=== PATIENT | male | born 1955 | race Caucasian/White ===

== ENCOUNTER 2016-05-18 06:21 | Day surgery (SDC) | payer OTHER ==
[2016-05-18] MEDS ORDERED: LACTATED RINGERS 1,000 ML IV ONE (06:55)
[2016-05-18] MEDS ORDERED: MIDAZOLAM 2 MG/2 ML VIAL IVP ONE (08:45)
[2016-05-18] MEDS ORDERED: fentaNYL 250 MCG/5 ML VIAL IVP ONE (08:45)
== END 2016-05-18 06:22 | disposition home or self-care (01) ==
PROC: 0DJD8ZZ Inspection of Lower Intestinal Tract, Via Natural or Artificial Opening Endoscopic (ICD-10-PCS; principal; 2016-05-18 07:30)
DX: Z12.11 Encounter for screening for malignant neoplasm of colon (principal); K64.8 Other hemorrhoids; K57.30 Diverticulosis of large intestine without perforation or abscess without bleeding; J45.909 Unspecified asthma, uncomplicated
CPT/HCPCS: 45378; J3010; J7120

== ENCOUNTER 2017-02-20 07:45 | Outpatient (CLI) | payer OTHER ==
--- NOTE | 2017-02-20 21:16 | MRI Report ---
EXAM: MRI LUMBAR SPINE WITHOUT CONTRAST EXAM DATE: 02/20/2017 08:38 AM. CLINICAL HISTORY: LOW BACK PAIN WITH SCIATICA. Posterior left leg/buttock pain for 2 weeks. COMPARISON: None. TECHNIQUE: Multiplanar, multisequence T1-weighted and fluid-sensitive sequences of the lumbar spine f rom T12 to S1 without contrast. Other: None. FINDINGS: Spinal Cord: The conus terminates at T12-L1. The conus medullaris and cauda equina are unremarkable. Alignment: Grade 1 retrolisthesis L1 in the lobe measuring 3 mm. Grade 1 retrolisthesis L2 on L3 maude uring 4 mm. Grade 1 retrolisthesis L3 on L4 measuring 2 mm. Bone Marrow: Five hzg-lrl-ofixuda lumbar vertebral bodies are assumed. No gross fractures or bone les ions. Modic type I degenerative endplate changes at L2-L3 and L5-S1 levels with endplate edema. Disk Levels/Facets: T12-L1: No significant central canal neuroforaminal narrowing. L1-L2: Moderate disk height loss and desiccation. Moderate diffuse disk bulge. Mild central canal ramila rowing. No neuroforaminal narrowing. L2-L3: Extensive disk height loss and desiccation. Moderate diffuse disk bulge. Mild bilateral facet arthropathy. Mild central canal narrowing. Mild bilateral neuroforaminal narrowing. L3-L4: Mild disk height loss and desiccation. Mild diffuse disk bulge. Mild bilateral facet arthropat hy. Mild anterior dural compression. No significant central canal narrowing. Umkw-oz-cdfrwhgl left an d mild right neuroforaminal. L4-L5: Mild disk height loss and desiccation. Mild diffuse disk bulge. Moderate bilateral facet arthr opathy ligament flavum thickening. No significant central canal narrowing. Moderate bilateral neurofo raminal narrowing. L5-S1: Moderate disk height loss and desiccation. Mild diffuse disk bulge. Moderate to severe bilater al facet arthropathy. There is a sequestered disk fragment within the left lateral recess measuring a pproximately 6 x 9 x 12 mm (AP by transverse by craniocaudal) (series 601 image 4, series 301 image 6 ). No significant central canal narrowing. Mild left and prqh-gn-genondex right neuroforaminal narrow ing. The sequestered disk fragment results likely in severe left lateral recess narrowing with mass e ffect on traversing left S1 nerve. Musculature: Normal. No edema or fatty atrophy. Other: The partially visualized retroperitoneum is unremarkable. IMPRESSION: 1. Regarding the patient's symptoms, the most significant level is likely the L5-S1 level which demon strates moderate diffuse disk bulge and moderate to severe bilateral facet arthropathy, and likely mo st importantly, a sequestered disk fragment within the left lateral recess measuring approximately 6 x 9 x 12 mm (AP by transverse by craniocaudal) (series 601 image 4, series 301 image 6). This sequest ered disk fragment results likely in severe left lateral recess narrowing with mass effect on valerie ing left S1 nerve. In addition there is mild left and vqlm-kz-dkztmalq right neuroforaminal narrowing at this level, however no significant central canal narrowing. 2. Modic type I degenerative endplate changes at L2-L3 and L5-S1 levels with endplate edema. Modic ty pe I changes may represent a source of pain. 3. L1-L2 level demonstrates mild central canal narrowing. No neuroforaminal narrowing. 4. L2-L3 level demonstrates mild central canal narrowing. Mild bilateral neuroforaminal narrowing. 5. L3-L4 level demonstrates no significant central canal narrowing. Lsai-vx-wjsarmoh left and mild ri ght neuroforaminal. 6. L4-L5 level demonstrates significant central canal narrowing. Moderate bilateral neuroforaminal na rrowing. Comment: The following findings are so common in adults without low back pain that while we report th eir presence, they must be interpreted with caution and in the context of the clinical situation. (Re sheree Perez et al, Spine 2001) Prevalence of findings in patients without low back pain: Disk degeneration (any evidence): 92% Disk desiccation/T2 signal loss: 83% Disk height loss: 56% Disk bulge: 64% Disk protrusion: 32% Annular tear/high intensity zone: 38% RADIA Referring Provider Line: [phone] SITE ID: [id number]
== END 2017-02-20 07:46 | disposition home or self-care (01) ==
LOC: DI 07:45
PROVIDERS: ATTEND Family Medicine
DX: M51.36 Other intervertebral disc degeneration, lumbar region (principal); M47.896 Other spondylosis, lumbar region; M43.16 Spondylolisthesis, lumbar region; M51.37 Other intervertebral disc degeneration, lumbosacral region; M47.897 Other spondylosis, lumbosacral region
CPT/HCPCS: 72148

== ENCOUNTER 2020-01-23 10:57 | Outpatient (CLI) | payer MEDICARE, OTHER ==
--- NOTE | 2020-01-23 12:58 | SLEEP CARE CONSULTATION ---
Information from patient questionnaire entered by Mckenna Mccoy. I have reviewed and concur with the information entered by Mckenna Mccoy. This document represents the service I personally performed and the decisions made by me, Onel Cheatham MD, [facility]. History of Present Illness Service Date and Time: 01/23/2020 1057 Reason for Visit: New patient, Previously diagnosed sleep apnea, sleep apnea on CPAP therapy Chief Complaint: reports: Other (needs supplies/establish care) Date of Onset: 2009 Usual bedtime: 1727-6609 Snores at night: Yes Observed to quit breathing while asleep: Yes Sleeps alone due to snoring: No Number of times waking at night: 1 Toss, Turn, or Twitch while sleeping: Yes Recalls having dreams: Yes Usually gets out of bed at: 3593-0403 Feels refreshed in the morning: Yes Morning headache: No Sleepy or fatigued during the day: No Ever fallen asleep while driving: Yes Takes day naps: No Dreams during day naps: No Prior sleep studies: Yes Year and Where: 2012 Type of Sleep Study: Polysomnography Additional HPI information: I had the pleasure of seeing Mr. Vera today regarding obstructive sleep apnea- hypopnea. As you know, he is a 65 year old gentleman who was diagnosed with the sleep-disordered breathing in [place] in 2012. The AHI was 17.8 and roberto oxygen saturation, 89%. He was prescribed a BiPAP device set at 9/4 with pressure min and max of 2 and 4 cmH2O. According to him, he uses every night and all night. The compliance data show usage in only the past 2 weeks. He said that was when he put in a memory card. The residual AHI is 5.7 and average air leak is 0 L/minute. He wears a ResMed P-10 nasal pillows. He gets his supplies from [employer]. He finds the treatment very beneficial. He has just gotten on Medicare. Subjective Initial [place] Sleepiness Scale score: 12 (in 2019) Past Medical History Past Medical History: reports: GERD Social History The patient's occupation is retired. Patient is and lives in [place]. Have you smoked in the past 12 months: No Alcohol use: Yes Alcohol amount and frequency: 2-3/day Caffeine use: Yes Caffeine amount and frequency: 1-2/day Family History Family history of sleep disordered breathing: No Allergies and Home Medications Drug allergies reviewed: Yes Home medication list reviewed: Yes Review of Systems Weight gain over past 5 years: 7 Cardiovascular: denies: high blood pressure, palpitations, chest pain, irregular heart rate or pulse, leg or foot swelling, have to sleep sitting up, other Respiratory: denies: shortness of breath, wheeze, sputum production, chronic cough, other Gastrointestinal: denies: heartburn, difficulty swallowing, nausea, vomitting, diarrhea, abdominal pain, other Urinary: denies: incontinence, frequency, urgency, impotence, other Neurological: denies: headaches, seizure, head trauma, disorientation, speech dysfunction, gait or balance problems, fainting or unconsciousness, other Psychiatric: denies: Attention Deficit Hyperactivity, anxiety, depression, mood disorder, claustrophobia, other Ear/Nose/Throat: reports: sinus problems, wisdom teeth removed Endocrine: denies: thyroid disease, history of goiter, sluggishness, too hot or cold, excessive thirst, increased appetite, increased urination, unexplained weakness, other Musculoskeletal: reports: back pain, muscle pain or cramping Immunologic: reports: sneezing, itching Physical Exam Vital signs obtained and entered by: To minimize the risk of COVID-19 exposure, detailed exam was not performed. Height: 5 ft 10 in Weight: 190 lb Body Mass Index: 27.2 BMI Classification: Overweight Impression and Plan IMPRESSION: 1. Obstructive Sleep Apnea-Hypopnea Syndrome, moderate, as previously diagnosed. The patient has had good treatment compliance. The current pressure setting appears effective and comfortable. The patient experiences improvement on the treatment. According to him he has good compliance. Because the BiPAP is now older than the useful life of 5 years, I will order the patient a new one and set it a little higher because his residual AHI is 5.7.. Plan: 1. Prescription made for an autoBiPAP, heated humidifier, and related supplies. 2. Try the new ResMed N30i mask and P30i nasal pillows. 3. Return for follow up after one month on the new machine. Visit Type: In Office Time Spent with Patient (minutes): 15 Provider Statement: I spent 100% of the Face to Face Visit with the patient with greater than 50% spent counseling the patient and coordination of care.
== END 2020-01-23 10:58 | disposition home or self-care (01) ==
LOC: SC 10:57
PROVIDERS: ATTEND Internal Medicine Pulmonary Disease
DX: G47.33 Obstructive sleep apnea (adult) (pediatric) (principal); E66.3 Overweight; Z68.27 Body mass index [BMI] 27.0-27.9, adult
CPT/HCPCS: 99203; G0463; 99212

== ENCOUNTER 2023-06-09 13:34 | Outpatient (CLI) | payer MEDICARE, OTHER ==
--- NOTE | 2023-06-09 14:37 | Sleep Patient Instructions ---
Sleep Center Visit Summary - Patient Visit Information Reason for Visit: Initial Consultation - Patient Instructions Additional Instructions: You will continue with BiPAP therapy with pressure set at 9/4 cmH2O. A supply prescription will be updated with your DME. I have added an order to update your PAP machine. Please call the office to schedule a compliance follow up once you get your new device. I have also added a mask refitting for other nasal pillows mask. We encourage you to continue to try to lose weight. Please follow up with the sleep care office one month after obtaining new device. - Clinic Information Contact: [facility] [address] [place] [address] [email or web address] T: [phone]
--- NOTE | 2023-06-09 14:43 | SLEEP CARE CONSULTATION ---
Information from patient questionnaire entered by Kelly Sotelo. I have reviewed and concur with the information entered by Kelly Sotelo. This document represents the service I personally performed and the decisions made by me, Christie Davalos ARNP. History of Present Illness Service Date and Time: 06/09/2023 1334 Reason for Visit: New patient, Previously diagnosed sleep apnea, sleep apnea on CPAP therapy, Re-establish care Chief Complaint: reports: Other (UPDATE SUPPLIES) Usual bedtime: [id number] Time it takes to fall asleep: DEPENDS Snores at night: Yes Observed to quit breathing while asleep: Yes Sleeps alone due to snoring: Yes Number of times waking at night: 2 Reasons for waking at night: reports: Other (UNKNOWN, CRAMPS) Toss, Turn, or Twitch while sleeping: Yes Recalls having dreams: Yes Usually gets out of bed at: 10 Feels refreshed in the morning: No Morning headache: No Sleepy or fatigued during the day: Yes Ever fallen asleep while driving: Yes Takes day naps: No Prior sleep studies: Yes Year and Where: 2012 Type of Sleep Study: Polysomnography Additional HPI information: JUANCHO HARRISON was previously diagnosed to have moderate, AHI 17.8, obstructive sleep apnea-hypopnea syndrome in sleep study dated 09/24/2012 and comes in today to establish care for BIPAP therapy. - Parasomnia Symptoms Ever been unable to move upon waking from sleep: No Walks in sleep: No Talks in sleep: No Ever acted out dreams in sleep: No Ever felt weak in the knees when startled or emotional: No Bothered by creepy, crawly, restless sensations in legs: Yes Problems with memory or concentration: No CPAP Compliance Data - Data Reviewed with Patient Average duration of nightly device use: 5 hours 49 mins Compliance rate %: 73.3 (03/11/2023-06/08/2023; 84/90 days used) Current pressure setting (cmH2O): 9/4 with 2-5 pressure support Average residual AHI: 4.9 Central apnea: 0.7 Obstructive apnea: 1.1 Hypopnea: 3.1 Average large leak: 0 secs Compliance data discussion: He has an old machine, Rory Respironic BiPAP System One. He gets his supplies from somewhere in [place] but has not gotten any since he changed to [facility]. He is using a nasal pillows mask, ResMed. Subjective Patient concerns: reports: mask discomfort (just from moving in bed), mask leak noise. denies: aerophagia, air blowing in eyes, condensation in mask/hose, nasal congestion, dry mouth, nose, throat, epistaxis Observed to snore while using device: No Current pressure setting perceived as: comfortable On therapy, patient: reports: sleeping better, awakening more refreshed, more rested overall. denies: drowsiness while driving Initial [place] Sleepiness Scale score: 12 (in 2019) Current [place] Sleepiness Scale score: 14 (06/09/23) Past Medical History Past Medical History: reports: Asthma Social History The patient's occupation is a RE. Patient is and lives in [place]. Have you smoked in the past 12 months: No Alcohol use: Yes Alcohol amount and frequency: 2-3 DAILY Caffeine use: Yes Caffeine amount and frequency: 1-2 DAILY Family History Family history of sleep disordered breathing: Yes Family Hx Sleep Apnea: Father: Snoring Allergies and Home Medications Known drug allergies: No Drug allergies reviewed: Yes Home medication list reviewed: Yes (as listed) Allergy and home medication list: Allergies cat dander Allergy (Verified 06/07/23 09:27) Respiratory tree and shrub pollen Allergy (Verified 06/07/23 09:27) Respiratory Home Medications Medication Instructions Recorded Confirmed Last Taken Type Fluticasone/Salmeterol [Advair 1 each IH DAILY 05/15/16 06/09/23 05/17/16 History 100-50 Diskus] Cetirizine [ZyrTEC] 10 mg PO DAILY 05/18/16 06/09/23 05/17/16 History Fluticasone Propionate [Flonase 1 spray NS DAILY 05/18/16 06/09/23 05/17/16 History Allergy Relief] Review of Systems Weight gain over past 5 years: 6-8 Cardiovascular: denies: high blood pressure Gastrointestinal: reports: heartburn Neurological: denies: headaches Psychiatric: denies: anxiety, depression Ear/Nose/Throat: reports: wisdom teeth removed (one left). denies: tonsillectomy Immunologic: reports: sneezing, itching, allergies to food or environment Physical Exam Vital signs obtained and entered by: KELLY Green MA Blood Pressure: 189/88 (LEFT ARM) Cuff size: regular Heart Rate: 56 O2 Saturation: 97 Height: 5 ft 10 in Weight: 200 lb 12.8 oz Body Mass Index: 28.8 BMI Classification: Overweight Heart: regular rate and rhythm Lungs: clear bilaterally Impression and Plan 1. Obstructive Sleep Apnea-Hypopnea Syndrome, moderate, with good treatment compliance and good apnea control. On BiPAP therapy, the patient has better sleep quality and is more rested overall. Patient returns to us about 4 years after his last appointment. He says he switched to Medicare and was unable to get more supplies until he reestablished care. He says his machine that was originally set up in 2013 is now making more noise than it did previously. He also would like to try a different style of the nasal pillows mask that has the tubing connecting to the top of the head. The patients BIPAP is over 5 years old and of reasonable use. In addition, it is starting to make louder noise, a sign of malfunction. Thus, the BIPAP will be updated. He also needs a new supplier for his CPAP supplies. A [facility] prescription will be made. Compliance guidelines for new device and follow up discussed. Patient's apnea severity and rationale for treatment to reduce apnea, improve sleep quality and reduce cardiovascular and cerebrovascular events was reviewed. I also reviewed the benefit of consistent device use of BIPAP for gastric reflux. 2. Overweight, unspecified. Currently patients BMI is 28.8. Obesity increases the risk of apnea, BiPAP pressure requirements and overall health risks especially cardiovascular and diabetes. Thus patient is advised to lose weight. * Continue BiPAP pressure at 9/4 cmH2O with 2-5 cmH2O pressure support * Update machine * Update supplies * Notify me if snoring with mask or feeling that the pressure is too much or too little * Attempt to lose weight * Call this office if any problems using BiPAP * Return for follow up one month after obtaining new device, or sooner if concerns arise Counseling Topics: Weight loss health impact Prescriptions: BiPAP, Device supplies Follow up with Sleep Care in: other (compliance followup) Visit Type: In Office Time Spent with Patient (minutes): 32 Provider Statement: I spent 100% of the Face to Face Visit with the patient with greater than 50% spent counseling the patient and coordination of care.
[2023-06-09 14:53] VITALS: BP 189/88; O2SAT 97
== END 2023-06-09 13:35 | disposition home or self-care (01) ==
LOC: SC 13:34
PROVIDERS: ATTEND Nurse Practitioner Family
DX: G47.33 Obstructive sleep apnea (adult) (pediatric) (principal)
CPT/HCPCS: 99203; G0463; 99212

== ENCOUNTER 2023-06-14 06:23 | Day surgery (SDC) | payer MEDICARE, OTHER ==
[2023-06-14] MEDS: LACTATED RINGERS 1,000 ML IV ONE ×2 (06:41→08:00)
[2023-06-14] MEDS ORDERED: LIDOCAINE-MPF 1% 30 ML VIAL ONE (07:15)
[2023-06-14] MEDS ORDERED: MIDAZOLAM 2 MG/2 ML VIAL ONE ×2 (07:30→07:40)
--- NOTE | 2023-06-14 07:35 | ANESTHESIA ---
Pre-Anesthesia VS, & Labs - Diagnosis elevated psa - Procedure prostate biopsy Vital Signs: Temp Pulse Resp BP Pulse Ox O2 Flow Rate 36.3 C L 55 L 12 142/90 H 95 06/14/23 06:42 06/14/23 06:42 06/14/23 06:42 06/14/23 06:42 06/14/23 06:42 Height: 5 ft 10 in Weight (kg): 91 kg Body Mass Index: 28.8 BMI Classification: Overweight - NPO >8 hours Home Medications and Allergies Fluticasone/Salmeterol [Advair 100-50 Diskus] 1 each IH DAILY 05/15/16 Cetirizine [ZyrTEC] 10 mg PO DAILY 05/18/16 Fluticasone Propionate [Flonase Allergy Relief] 1 spray NS DAILY 05/18/16 Allergies/Adverse Reactions: Allergies Allergy/AdvReac Type Severity Reaction Status Date / Time cat dander Allergy Respiratory Verified 06/14/23 06:52 tree and shrub pollen Allergy Respiratory Verified 06/14/23 06:52 Anes History & Medical History - Anesthetic History Anesthesia Complications: reports: No previous complications Family history of Anesthesia Complications: Denies Family history of Malignant Hyperthermia: Denies - Medical History Cardiovascular: reports: None Pulmonary: reports: Asthma, CPAP use Gastrointestinal: reports: None Urinary: reports: Kidney stones Musculoskeletal: reports: Chronic back pain Endocrine/Autoimmune: reports: None Skin: reports: None Psychosocial: reports: No issues indicated History of Cancer?: No - Surgical History General: reports: Colonoscopy Eyes Ears Nose Throat (EENT): reports: Other Exam General: Alert, Oriented x3, Cooperative Dental: WNL Mouth Openin Fingerbreadth Neck Mobility: Normal Mallampati classification: II Thyromental Distance: 4-6 cm Respiratory: Lungs clear Cardiovascular: Regular rate Plan Anesthesia Type: MAC Consent for Procedure(s) Verified and Reviewed: Yes Code Status: Attempt Resuscitation ASA classification: 2-Mild systemic disease Is this case an emergency?: No
[2023-06-14] MEDS ORDERED: fentaNYL 100 MCG/2 ML VIAL ONE (07:38)
[2023-06-14] MEDS: LIDOCAINE 1% 50 ML MDV SUBQ ONE (07:55)
[2023-06-14] MEDS ORDERED: ONDANSETRON 4 MG/2 ML VIAL IVP PRN (08:02)
--- NOTE | 2023-06-14 08:06 | Discharge Plan ---
Discharge Plan Problem Reviewed?: Yes Disposition: Home, Self Care Condition: Good Diet: Regular Activity Restrictions: No Restrictions Shower Restrictions: No Driving Restrictions: No Instruction Topics: Biopsy Ultrasound Transrectal Additional Instructions or Follow Up instructions: You have an appoint with Dr. Hess on June 29 at 11:30 AM, please arrive 15 minutes early No Smoking: If you smoke, Please STOP! Call for help. Follow-up with: Nikhil Hess MD [Provider Admit Priv/Credential] -
--- NOTE | 2023-06-14 08:10 | OPERATIVE REPORT ---
Operative Report - General Procedure Date: 06/14/23 Planned Procedure: Transrectal ultrasound-guided prostate biopsy Pre-Op Diagnosis: Elevated PSA Procedure Performed: Transrectal ultrasound-guided prostate biopsy Post Op Diagnosis: Elevated PSA - Procedure Note Primary Surgeon: Eileen Anesthesia Provider: ISREAL Woo Anesthesia Technique: Moderate sedation Pathology: Routine prostate biopsy samples Estimated Blood Loss (mL): 1 Indications: elevated psa Findings: Routine prostate biopsy Prostate volume 33.3 cc Complications: none - Other Other Information/Narrative: After informed consent was obtained the patient was brought to the OR and laid in the supine position. The patient was then anesthetized per anesthesia protocols and placed in the left lower cubitus position with left side down. A timeout was performed reconfirming the patient, procedure and laterality. A transrectal ultrasound-guided probe was placed per rectum and his prostate was visualized. 5 cc 1% lidocaine was placed at the lateral aspect of the prostate bilaterally. The prostate volume was measured at 33.3 cc Using 18-gauge biopsy needle we obtained samples of the prostate from the right and left side, the lateral and medial aspects of the base, mid and apex for a total of 12 samples. These were sent for analysis separately. The probe was slowly removed and no bleeding was identified. The patient tolerated procedure well and was brought to the PACU without further incident. He will follow-up in a few weeks time for pathology discussion
[2023-06-14 08:33] VITALS: BP 129/83; O2SAT 96
--- NOTE | 2023-06-14 10:33 | ANESTHESIA POST OP EVALUATION ---
Anesthesia Post Eval - Post Anesthesia Eval Vitals: Last Vital Signs Temp 36.3 C L 06/14/23 08:00 Pulse 50 L 06/14/23 08:28 Resp 16 06/14/23 08:28 BP 129/83 H 06/14/23 08:28 Pulse Ox 96 06/14/23 08:28 O2 Flow Rate CV Function Including HR & BP: Stable Pain Control: Satisfactory Nausea & Vomiting: Negative Mental Status: Baseline Respiratory Status: Airway Patent Hydration Status: Satisfactory Anesthesia Complications: None
== END 2023-06-14 06:24 | disposition home or self-care (01) ==
LOC: SDS 06:23
PROVIDERS: ATTEND Urology
PROC: 0VB03ZX Excision of Prostate, Percutaneous Approach, Diagnostic (ICD-10-PCS; principal; 2023-06-14 07:30)
DX: R97.20 Elevated prostate specific antigen [PSA] (principal); J45.909 Unspecified asthma, uncomplicated
CPT/HCPCS: 55700; J7120

== ENCOUNTER 2023-09-28 13:50 | Outpatient (CLI) | payer MEDICARE, OTHER ==
--- NOTE | 2023-09-28 14:14 | Sleep Patient Instructions ---
Sleep Center Visit Summary - Patient Visit Information Reason for Visit: First compliance follow-up with new BiPAP - Patient Instructions Additional Instructions: You were here for follow up of BIPAP therapy. You will be continued on BiPAP therapy with pressure at 9/4 cmH2O. You should follow up with sleep care in 12 months. You may contact us sooner for any questions or concerns. - Clinic Information Contact: [facility] [address] [place] [id number] [email or web address] T: [phone]
--- NOTE | 2023-09-28 14:17 | SLEEP CARE CONSULTATION ---
Information from patient questionnaire entered by Kelly Sotelo. I have reviewed and concur with the information entered by Kelly Sotelo. This document represents the service I personally performed and the decisions made by me, Christie Davalos ARNP. History of Present Illness Service Date and Time: 09/28/2023 1350 Previous diagnosis: Moderate, Obstructive Sleep Apnea-Hypopnea Syndrome AHI: 17.8 (09/24/2012) Reason for follow up: first compliance after device update Equipment type: BiPAP (RESMED 10 AIRCURVE S/U 08/04/23) Equipment obtained from: Other ([facility]; getting supplies) Mask style: Nasal pillows Backup mask available: Yes Last cushion change: 2 weeks Prior sleep studies: Yes and Where: 2012 Type of Sleep Study: Polysomnography HPI additional information: JUANCHO HARRISON was diagnosed to have moderate, AHI 17.8, obstructive sleep apnea- hypopnea syndrome and returned today for BIPAP therapy first compliance after updating device follow-up. Sleep Study - Results Type of Sleep Study: Polysomnography Prior sleep studies: Yes Year and Where: 2012 CPAP Compliance Data - Data Reviewed with Patient Average duration of nightly device use: 6 HRS 6 MINS Compliance rate %: 70 (08/12/23-09/10/23; days used) Current pressure setting (cmH2O): 9/4 with 2 cmH2O pressure support Average residual AHI: 1.7 Central apnea: 0.4 Obstructive apnea: 1 Hypopnea: 0.2 Average large leak: 3.3 L/min Subjective Missed days of use due to: reports: travel Patient concerns: reports: mask leak noise. denies: aerophagia, mask discomfort, air blowing in eyes, condensation in mask/hose, nasal congestion, dry mouth, nose, throat, epistaxis Observed to snore while using device: No Current pressure setting perceived as: comfortable On therapy, patient: reports: sleeping better, awakening more refreshed, being more awake and alert during the day, more rested overall. denies: drowsiness while driving Initial [place] Sleepiness Scale score: 12 (in 2019) Current [place] Sleepiness Scale score: 6 Allergies and Home Medications Known drug allergies: No (as listed) Drug allergies reviewed: Yes Home medication list reviewed: Yes (no changes) Allergy and home medication list: Allergies cat dander Allergy (Verified 09/24/23 14:36) Respiratory tree and shrub pollen Allergy (Verified 09/24/23 14:36) Respiratory Review of Systems Review of systems same as previous: Yes (no changes) Physical Exam Vital signs obtained and entered by: CHRISTIE THORNTON Blood Pressure: 133/80 Cuff size: long (right arm) Heart Rate: 58 O2 Saturation: 98 Height: 5 ft 10 in Weight: 200 lb 12.8 oz Body Mass Index: 28.8 BMI Classification: Overweight Impression and Plan 1. Obstructive Sleep Apnea-Hypopnea Syndrome, moderate, with good treatment compliance and good apnea control. On BIPAP therapy, the patient has better sleep quality and is more rested overall. Patient states machine is working well. He says he got a letter stating that he does not need compliant follow- ups. I explained that we will do a follow-up once a year just to update his prescription and he voiced understanding. Patient denies problems with oral dryness, nasal congestion, epistaxis, skin irritation or aerophagia. Patient's apnea severity and rationale for treatment to reduce apnea, improve sleep quality and reduce cardiovascular and cerebrovascular events was reviewed. 2. Overweight, unspecified. Currently patients BMI is 28.8. Obesity increases the risk of apnea, BIPAP pressure requirements and overall health risks especially cardiovascular and diabetes. Thus patient is advised to lose weight. * Continue BiPAP pressure at 9/4 cmH2O with 2-5 cmH2O pressure support * Notify me if snoring with mask or feeling that the pressure is too much or too little * Attempt to lose weight * Call this office if any problems using BIPAP * Return for follow up in 12 months, or sooner if concerns arise Counseling Topics: Spare mask, Weight loss health impact Follow up with Sleep Care in: 1 year Visit Type: In Office Time Spent with Patient (minutes): 15 Provider Statement: I spent 100% of the Face to Face Visit with the patient with greater than 50% spent counseling the patient and coordination of care.
[2023-09-28 14:21] VITALS: BP 133/80; O2SAT 98
== END 2023-09-28 13:51 | disposition home or self-care (01) ==
LOC: SC 13:50
PROVIDERS: ATTEND Nurse Practitioner Family
DX: G47.33 Obstructive sleep apnea (adult) (pediatric) (principal); E66.3 Overweight; Z68.28 Body mass index [BMI] 28.0-28.9, adult
CPT/HCPCS: 99212; G0463